=== PATIENT | female | born 1935 | race Hispanic/Latino ===

== ENCOUNTER 2021-04-08 17:13 | Observation (INO) | payer MEDICARE ==
[2021-04-08] MEDS ORDERED: PANTOPRAZOLE 40 MG INJ IV ONE (17:47)
[2021-04-08] MEDS ORDERED: SODIUM CHLORIDE 0.9% 1000 ML 1,000 ML IV ONE (17:47)
[2021-04-08] MEDS ORDERED: ONDANSETRON 4 MG/2 ML INJ IV ONE (17:47)
--- NOTE | 2021-04-08 17:49 | Emergency Department Report ---
ED GI Bleed HPI - General Chief complaint: GI Bleed Stated complaint: GI BLEED Time Seen by Provider: 04/08/21 17:38 Source: patient, EMS ( EMS documentation not available at time of chart dictation ), RN notes reviewed Mode of arrival: Stretcher Limitations: No Limitations, Physical Limitation - History of Present Illness Initial comments: The patient was evaluated in the emergency department for symptoms described in the history of present illness. He/she was evaluated in the context of the global COVID-19 pandemic, which necessitated consideration that the patient might be at risk for infection with the virus that causes COVID-19. Institution al protocols and algorithms that pertain to the evaluation of patients at risk for COVID-19 are in a state of rapid change based on information released by regulatory bodies including the CDC and federal and state organizations. These policies and algorithms were followed during the patient's care in the emergency department. Please note that these policies, procedures and recommendations changed on a rapid basis. The patient is an 85-year-old female. She presents to the ER via EMS with a co mplaint of weakness. She believes that she is defecating blood. She is not sure if she is taking any blood thinners. She thinks that she felt weak, and may have lost consciousness while using the restroom. She did not hit her head or neck. She denies physical pain. She denies urinary symptoms. MD complaint: melena -: Sudden Severity scale (0 -10): 0 Consistency: constant Improves with: none Worsens with: none Associated Symptoms: syncope - Related Data Allergies Allergy/AdvReac Type Severity Reaction Status Date / Time sulfamethoxazole Allergy Unknown Verified 04/08/21 17:13 [From Bactrim] trimethoprim [From Bactrim] Allergy Unknown Verified 04/08/21 17:13 ED Review of Systems ROS: Stated complaint: GI BLEED Other details as noted in HPI Constitutional: malaise, weakness. denies: fever Eyes: denies: eye discharge ENT: denies: epistaxis Cardiovascular: syncope. denies: chest pain Gastrointestinal: melena. denies: abdominal pain Genitourinary: denies: dysuria Neurological: weakness ED Past Medical Hx - Past Medical History Hx Hypertension: Yes Additional medical history: HYPOTHYROID, NEUROPATHY ED Physical Exam - General Limitations: No Limitations General appearance: alert, in no apparent distress - Head Head exam: Present: atraumatic, normocephalic - Eye Eye exam: Present: normal appearance, EOMI, other (Conjunctiva are pale). Absent: nystagmus - ENT ENT exam: Present: normal exam, normal orophraynx, mucous membranes moist, normal external ear exam - Neck Neck exam: Present: normal inspection, full ROM. Absent: tenderness, meningismus - Respiratory Respiratory exam: Present: normal lung sounds bilaterally. Absent: respiratory distress, wheezes, rales, rhonchi, stridor, decreased breath sounds - Cardiovascular Cardiovascular Exam: Present: regular rate, normal rhythm, normal heart sounds. Absent: bradycardia, tachycardia, irregular rhythm, systolic murmur, diastolic murmur, rubs, gallop - GI/Abdominal GI/Abdominal exam: Present: soft. Absent: distended, tenderness, guarding, rebound, rigid, pulsatile mass - Rectal Rectal exam: Present: normal inspection, normal rectal tone, heme (+) stool, black stool, other (Chaperoned by nurse Tracee Johnosn) - Extremities Exam Extremities exam: Present: normal inspection, full ROM, other (2+ pulses noted in the bilateral upper and lower extremities. There is no palpable cord. negative Homans sign. Muscular compartments are soft. The pelvis is stable.). Absent: pedal edema, calf tenderness - Back Exam Back exam: Present: normal inspection, full ROM. Absent: tenderness, CVA ten derness (R), CVA tenderness (L), paraspinal tenderness, vertebral tenderness - Neurological Exam Neurological exam: Present: alert, other (No facial droop. Tongue midline. Extraocular movements intact bilaterally. Facial sensation intact to light touch in V1, V2, V3 distribution bilaterally. 5 and a 5 strength in 4 extremities. Sensation intact to light touch in 4 extremities.) - Psychiatric Psychiatric exam: Present: normal affect, normal mood - Skin Skin exam: Present: warm, dry, intact, normal color. Absent: rash ED Course Vital Signs 04/08/21 04/08/21 17:14 17:49 Temperature 95.0 F L 95.9 F L Pulse Rate 68 Respiratory 18 Rate Blood Pressure 92/58 [Left] O2 Sat by Pulse 97 Oximetry - Reevaluation(s) Reevaluation #1: 04/08/21 19:13 Hypothermia is likely secondary to environmental exposure. Patient denies infectious symptoms. Place patient on warm blankets. ED Medical Decision Making - Lab Data Result diagrams: 04/08/21 18:27 04/08/21 18:27 Vital Signs 04/08/21 04/08/21 17:14 17:49 Temperature 95.0 F L 95.9 F L Pulse Rate 68 Respiratory 18 Rate Blood Pressure 92/58 [Left] O2 Sat by Pulse 97 Oximetry Lab Results 04/08/21 04/08/21 Range/Units 18:27 18:27 WBC 8.3 (4.5-11.0) K/mm3 RBC 2.81 L (3.65-5.03) M/mm3 Hgb 9.2 L (10.1-14.3) gm/dl Hct 27.3 L (30.3-42.9) % MCV 97 (79-97) fl MCH 33 H (28-32) pg MCHC 34 (30-34) % RDW 13.7 (13.2-15.2) % Plt Count 246 (140-440) K/mm3 Lymph % (Auto) 7.5 L (13.4-35.0) % [place] % (Auto) 7.5 H (0.0-7.3) % Eos % (Auto) 0.9 (0.0-4.3) % Baso % (Auto) 0.4 (0.0-1.8) % Lymph # (Auto) 0.6 L (1.2-5.4) K/mm3 [place] # (Auto) 0.6 (0.0-0.8) K/mm3 Eos # (Auto) 0.1 (0.0-0.4) K/mm3 Baso # (Auto) 0.0 (0.0-0.1) K/mm3 Seg Neutrophils % 83.7 H (40.0-70.0) % Seg Neutrophils # 7.0 (1.8-7.7) K/mm3 PT 14.5 (12.2-14.9) Sec. INR 1.02 (0.87-1.13) APTT 28.7 (24.2-36.6) Sec. Lab Results 04/08/21 04/08/21 04/08/21 Range/Units 18:27 18:27 18:27 WBC 8.3 (4.5-11.0) K/mm3 RBC 2.81 L (3.65-5.03) M/mm3 Hgb 9.2 L (10.1-14.3) gm/dl Hct 27.3 L (30.3-42.9) % MCV 97 (79-97) fl MCH 33 H (28-32) pg MCHC 34 (30-34) % RDW 13.7 (13.2-15.2) % Plt Count 246 (140-440) K/mm3 Lymph % (Auto) 7.5 L (13.4-35.0) % [place] % (Auto) 7.5 H (0.0-7.3) % Eos % (Auto) 0.9 (0.0-4.3) % Baso % (Auto) 0.4 (0.0-1.8) % Lymph # (Auto) 0.6 L (1.2-5.4) K/mm3 [place] # (Auto) 0.6 (0.0-0.8) K/mm3 Eos # (Auto) 0.1 (0.0-0.4) K/mm3 Baso # (Auto) 0.0 (0.0-0.1) K/mm3 Seg Neutrophils % 83.7 H (40.0-70.0) % Seg Neutrophils # 7.0 (1.8-7.7) K/mm3 PT 14.5 (12.2-14.9) Sec. INR 1.02 (0.87-1.13) APTT 28.7 (24.2-36.6) Sec. Sodium 132 L (137-145) mmol/L Potassium 4.2 (3.6-5.0) mmol/L Chloride 103.6 (98-107) mmol/L Carbon Dioxide 21 L (22-30) mmol/L Anion Gap 12 mmol/L BUN 54 H (7-17) mg/dL Creatinine 0.9 (0.6-1.2) mg/dL Estimated GFR 60 ml/min BUN/Creatinine Ratio 60 % Glucose 119 H (65-100) mg/dL Calcium 8.7 (8.4-10.2) mg/dL Total Bilirubin 0.20 (0.1-1.2) mg/dL AST 15 (5-40) units/L ALT 9 (7-56) units/L Alkaline Phosphatase 91 (35-129) units/L Total Protein 6.2 L (6.3-8.2) g/dL Albumin 3.2 L (3.9-5) g/dL Albumin/Globulin Ratio 1.1 % - EKG Data -: EKG Interpreted by Me EKG shows normal: sinus rhythm Rate: normal - EKG Data 04/08/21 19:10 The EKG is interpreted at 18: 54 Sinus rhythm, rate 66 bpm. Left axis deviation, left anterior fascicular block, QTC 4 6 9 ms, and motion artifact. Abnormal EKG. Not a STEMI - Medical Decision Making Differential diagnosis, including but not limited to: Upper GI bleed, lower GI bleed, angiodysplasia, diverticulosis Assessment and plan: Elderly 85-year-old female presenting with probable upper GI bleed which is painless. She is clinically sober with a GCS of 15, and reports that she has not hit her head or her neck. Nursing team able to reconcile medications from home family members, patient does not take systemic anticoagulation. Blood pressure currently 127/60 mmHg. Make n.p.o., start Protonix push, Protonix drip, and IV fluids. Contacted GI physician on-call, Dr. Fernando. Have discussed the patient's history, physical, laboratory studies and clinical impression. She will follow in consultation. Discussed with hospital physician, Dr. Lasha Lee He will admit the patient to the medical service. Discussed recommendation for admission with the patient. She is agreeable to this plan of care. She has no yazdanism objections to receiving packed red blood cells should she require. At this point in time, resting comfortably, would not transfuse. Continue supportive care and fluids Critical care attestation.: If time is entered above; I have spent that time in minutes in the direct care of this critically ill patient, excluding procedure time. ED Disposition Clinical Impression: GI bleed, History of syncope Disposition: ADMITTED INPATIENT Is pt being admited?: Yes Does the pt Need Aspirin: No Condition: Stable Forms: Accompanied Note
[2021-04-08 18:54] LABS: Basophils % (Auto) 0.4 % (0.0-1.8); Eosinophils # (Auto) 0.1 K/mm3 (0.0-0.4); Eosinophils % (Auto) 0.9 % (0.0-4.3); Hematocrit 27.3 % (30.3-42.9); Hemoglobin 9.2 gm/dl (10.1-14.3); Lymphocytes # (Auto) 0.6 K/mm3 (1.2-5.4); Lymphocytes % (Auto) 7.5 % (13.4-35.0); Mean Corpuscular HGB Conc 34 % (30-34); Mean Corpuscular Volume 97 fl (79-97); Monocytes # (Auto) 0.6 K/mm3 (0.0-0.8); Monocytes % (Auto) 7.5 % (0.0-7.3); Platelet Count 246 K/mm3 (140-440); Red Blood Count 2.81 M/mm3 (3.65-5.03); Red Cell Distribution Width 13.7 % (13.2-15.2)
[2021-04-08 19:04] LABS: INR 1.02 (0.87-1.13); Partial Thromboplastin Time 28.7 Sec. (24.2-36.6)
[2021-04-08 19:12] LABS: Albumin 3.2 g/dL (3.9-5); Calcium 8.7 mg/dL (8.4-10.2)
[2021-04-08] MEDS: PANTOPRAZOLE 80 MG in SODIUM CHLORIDE 0.9% 100 ML IV SCH (20:02)
[2021-04-08] MEDS ORDERED: ONDANSETRON 4 MG/2 ML INJ IV PRN (22:53)
[2021-04-08] MEDS ORDERED: MORPHINE 2 MG/1 ML INJ IV PRN (22:53)
[2021-04-08] MEDS ORDERED: ACETAMINOPHEN 325 MG TAB PO PRN (22:53)
--- NOTE | 2021-04-08 22:53 | History and Physical Report ---
History of Present Illness Date of examination: 04/08/21 Date of admission: April 08, 2021 Chief complaint: Melanotic stool since morning Syncope X1 History of present illness: 85-year-old female with past medical history of hypertension, hypothyroidism and neuropathy believe that she is having melanotic stools. For 1 day. Not on any blood thinners. Feels weak and lightheaded. Syncopized once. While using the restroom. Did not hit her head or neck. No physical pain. No chest pain. No GI bleed in the past. No exacerbating or relieving factors. Review of Systems ROS: Stated complaint: GI BLEED Other details as noted in HPI Constitutional: malaise, weakness. denies: fever Eyes: denies: eye discharge ENT: denies: epistaxis Cardiovascular: syncope. denies: chest pain Gastrointestinal: melena. denies: abdominal pain Genitourinary: denies: dysuria Neurological: weakness Past History Past Medical History: hypertension, hypothyroidism, other (Neuropathy) Past Surgical History: No surgical history Social history: full code Family history: hypertension Medications and Allergies Allergies Allergy/AdvReac Type Severity Reaction Status Date / Time sulfamethoxazole Allergy Unknown Verified 04/08/21 17:13 [From Bactrim] trimethoprim [From Bactrim] Allergy Unknown Verified 04/08/21 17:13 Active Meds: Active Medications Pantoprazole Sodium 80 mg/ (Sodium Chloride) 100 mls @ 10 mls/hr IV DIRECT ODIN Last Admin: 04/08/21 20:02 Dose: 8 mg/hr, 10 mls/hr Exam - Constitutional Vitals: Temp Pulse Resp BP Pulse Ox 95.9 F L 68 18 92/58 97 04/08/21 17:49 04/08/21 17:14 04/08/21 17:14 04/08/21 17:14 04/08/21 17:14 General appearance: Present: no acute distress, well-nourished - EENT Eyes: Present: PERRL ENT: hearing intact, clear oral mucosa - Neck Neck: Present: supple, normal ROM - Respiratory Respiratory effort: normal Respiratory: bilateral: CTA - Cardiovascular Heart rate: 78 Rhythm: regular Heart Sounds: Present: S1 & S2. Absent: rub, click - Extremities Extremities: no ischemia, pulses intact, pulses symmetrical, No edema Peripheral Pulses: within normal limits - Abdominal General gastrointestinal: Present: soft, non-tender, non-distended, normal bowel sounds Female genitourinary: Present: normal - Rectal Rectal Exam: stool dark (Occult blood positive) - Integumentary Integumentary: Present: clear, warm, dry - Musculoskeletal Musculoskeletal: gait normal, strength equal bilaterally - Psychiatric Psychiatric: appropriate mood/affect, intact judgment & insight - Neurologic Neurologic: CNII-XII intact, moves all extremities HEART Score - HEART Score History: Slightly suspicious Age: > 65 Risk factors: 1-2 risk factors Troponin: < normal limit - Critical Actions Critical Actions: 0-3 pts:0.9-1.7%risk of adverse cardiac event.Candidate for discharge Results - Labs CBC & Chem 7: 04/09/21 05:06 04/09/21 05:06 Labs: Laboratory Last Values WBC 8.3 K/mm3 (4.5-11.0) 04/08/21 18:27 RBC 2.81 M/mm3 (3.65-5.03) L 04/08/21 18:27 Hgb 9.2 gm/dl (10.1-14.3) L 04/08/21 18:27 Hct 27.3 % (30.3-42.9) L 04/08/21 18:27 MCV 97 fl (79-97) 04/08/21 18:27 MCH 33 pg (28-32) H 04/08/21 18:27 MCHC 34 % (30-34) 04/08/21 18:27 RDW 13.7 % (13.2-15.2) 04/08/21 18:27 Plt Count 246 K/mm3 (140-440) 04/08/21 18:27 Lymph % (Auto) 7.5 % (13.4-35.0) L 04/08/21 18:27 [place] % (Auto) 7.5 % (0.0-7.3) H 04/08/21 18:27 Eos % (Auto) 0.9 % (0.0-4.3) 04/08/21 18:27 Baso % (Auto) 0.4 % (0.0-1.8) 04/08/21 18:27 Lymph # (Auto) 0.6 K/mm3 (1.2-5.4) L 04/08/21 18:27 [place] # (Auto) 0.6 K/mm3 (0.0-0.8) 04/08/21 18:27 Eos # (Auto) 0.1 K/mm3 (0.0-0.4) 04/08/21 18:27 Baso # (Auto) 0.0 K/mm3 (0.0-0.1) 04/08/21 18:27 Seg Neutrophils % 83.7 % (40.0-70.0) H 04/08/21 18:27 Seg Neutrophils # 7.0 K/mm3 (1.8-7.7) 04/08/21 18:27 PT 14.5 Sec. (12.2-14.9) 04/08/21 18:27 INR 1.02 (0.87-1.13) 04/08/21 18:27 APTT 28.7 Sec. (24.2-36.6) 04/08/21 18:27 Sodium 132 mmol/L (137-145) L 04/08/21 18: Potassium 4.2 mmol/L (3.6-5.0) 04/08/21 18: Chloride 103.6 mmol/L (98-107) 04/08/21 18:27 Carbon Dioxide 21 mmol/L (22-30) L 04/08/21 18:27 Anion Gap 12 mmol/L 04/08/21 18:27 BUN 54 mg/dL (7-17) H 04/08/21 18:27 Creatinine 0.9 mg/dL (0.6-1.2) 04/08/21 18:27 Estimated GFR 60 ml/min 04/08/21 18: BUN/Creatinine Ratio 60 % 04/08/21 18:27 Glucose 119 mg/dL (65-100) H 04/08/21 18:27 Calcium 8.7 mg/dL (8.4-10.2) 04/08/21 18:27 Total Bilirubin 0.20 mg/dL (0.1-1.2) 04/08/21 18:27 AST 15 units/L (5-40) 04/08/21 18:27 ALT 9 units/L (7-56) 04/08/21 18: Alkaline Phosphatase 91 units/L (35-129) 04/08/21 18:27 Total Protein 6.2 g/dL (6.3-8.2) L 04/08/21 18:27 Albumin 3.2 g/dL (3.9-5) L 04/08/21 18:27 Albumin/Globulin Ratio 1.1 % 04/08/21 18:27 Blood Type AB POSITIVE 04/08/21 18:31 Antibody Screen Negative 04/08/21 18:31 Short CBC 04/08/21 04/08/21 04/09/21 Range/Units 18:27 23:08 05:06 WBC 8.3 (4.5-11.0) K/mm3 Hgb 9.2 L 8.2 L 8.3 L (10.1-14.3) gm/dl Hct 27.3 L 24.5 L 24.9 L (30.3-42.9) % Plt Count 246 (140-440) K/mm3 BMP 04/08/21 04/09/21 18:27 05:06 Sodium 132 L 142 D Potassium 4.2 3.7 Chloride 103.6 115.3 H Carbon Dioxide 21 L 13 L D BUN 54 H 37 H Creatinine 0.9 0.7 Glucose 119 H 84 Calcium 8.7 8.6 Liver Function 04/08/21 Range/Units 18:27 Total Bilirubin 0.20 (0.1-1.2) mg/dL AST 15 (5-40) units/L ALT 9 (7-56) units/L Alkaline Phosphatase 91 (35-129) units/L Albumin 3.2 L (3.9-5) g/dL Assessment and Plan Advance Directives: Yes (Full code) VTE prophylaxis?: Mechanical Plan of care discussed with patient/family: Yes - Patient Problems (1) GI bleed Current Visit: Yes Status: Acute Qualifiers: GI bleed type/associated pathology: unspecified gastrointestinal hemorrhage type Qualified Code(s): K92.2 - Gastrointestinal hemorrhage, unspecified Plan to address problem: Possible upper GI bleed IV Protonix drip GI consult Keep patient n.p.o. (2) Hypertension Current Visit: Yes Status: Chronic Qualifiers: Hypertension type: primary hypertension Qualified Code(s): I10 - Essential (primary) hypertension Plan to address problem: Patient not on any antihypertensives We will start antihypertensives if necessary (3) Hypothyroidism Current Visit: Yes Status: Chronic Qualifiers: Hypothyroidism type: acquired Qualified Code(s): E03.9 - Hypothyroidism, unspecified Plan to address problem: By history Check TSH No Synthroid on home medications We will start Synthroid if TSH is high (4) Advance care planning Current Visit: Yes Status: Acute Plan to address problem: Disease education conducted, care plan discussed, diagnosis discussed, prognosis discussed. Patient is full code. Patient acknowledges understanding and agreement with care plan. +30 minutes. (5) Symptomatic anemia Current Visit: Yes Status: Acute Plan to address problem: Transfuse if necessary (6) DVT prophylaxis Current Visit: Yes Status: Acute Plan to address problem: On SCDs and GI prophylaxis (7) Syncope and collapse Current Visit: Yes Status: Acute Plan to address problem: Secondary to orthostatic hypotension IV fluids Normal work-up
[2021-04-08 23:13] LABS: Hematocrit 24.5 % (30.3-42.9); Hemoglobin 8.2 gm/dl (10.1-14.3)
[2021-04-09] MEDS: SODIUM CHLORIDE 0.9% 1000 ML 1,000 ML IV SCH ×2 (02:29→17:09)
[2021-04-09 06:29] LABS: Hematocrit 24.9 % (30.3-42.9); Hemoglobin 8.3 gm/dl (10.1-14.3)
[2021-04-09 06:56] LABS: Blood Urea Nitrogen 37 mg/dL (7-17); Calcium 8.6 mg/dL (8.4-10.2); Hemolysis Index 24
[2021-04-09 06:59] LABS: BUN/Creatinine Ratio 53
[2021-04-09] MEDS ORDERED: LIDOCAINE MPF (2%) 20 MG/1 ML VIAL 5 ML ONE (07:53)
[2021-04-09] MEDS ORDERED: propofoL 200 MG/20 ML VIAL IV ONE (07:54)
--- NOTE | 2021-04-09 08:01 | Anesthesia Consultation ---
Anesthesia Consult and Med Hx Date of service: 04/09/21 - Airway Anesthetic Teeth Evaluation: Dentures ROM Head & Neck: Adequate Mental/Hyoid Distance: Adequate Mallampati Class: Class II Intubation Access Assessment: Good - Pulmonary Exam CTA: Yes - Cardiac Exam Cardiac Exam: RRR - Pre-Operative Health Status ASA Pre-Surgery Classification: ASA2 Proposed Anesthetic Plan: MAC - Pulmonary Hx Smoking: No Hx Respiratory Symptoms: No Home Oxygen Therapy: No Hx Sleep Apnea: No - Cardiovascular System Hx Hypertension: Yes Hx Cardia Arrhythmia: No Hx Heart Murmur: No - Central Nervous System Hx Neuromuscular Disorder: No CVA: No - Endocrine Hx Renal Disease: No Hx Hypothyroidism: Yes - Hematic Hx Anemia: Yes - Additional Comments Anesthesia Medical History Comments: Hysterectomy NAC
--- NOTE | 2021-04-09 08:02 | Anesthesia Day of Surgery ---
Anesthesia Day of Surgery - Day of Surgery Patient Examined: Yes Patient H&P Reviewed: Yes Patient is NPO: Yes
--- NOTE | 2021-04-09 08:32 | Gastroenterology Consultation ---
History of Present Illness - Reason for Consult Consult date: 04/09/21 GI Bleed Requesting physician: CRISTOPHER LYLES - History of Present Illness This is a pleasant 85-year-old female no history of GI bleed in the past presenting with melena, coffee-ground emesis, and weakness She denies use of NSAIDs She denies abdominal pain She reports for the last day having coffee-ground emesis as well as black tarry stool and weakness fatigue and dyspnea on exertion Denies history of peptic ulcer disease, denies blood thinners Duration 1 day Obtained/updated/reviewed patient's current medications Past History Past Medical History: hypertension, hypothyroidism, other (Neuropathy) Past Surgical History: No surgical history Social history: full code Family history: hypertension Medications and Allergies Allergies Allergy/AdvReac Type Severity Reaction Status Date / Time sulfamethoxazole Allergy Unknown Verified 04/08/21 17:13 [From Bactrim] trimethoprim [From Bactrim] Allergy Unknown Verified 04/08/21 17:13 Active Meds: Active Medications Acetaminophen (Acetaminophen 325 Mg Tab) 650 mg PO Q4H PRN PRN Reason: Pain MILD(1-3)/Fever >100.5/BRYAN Pantoprazole Sodium 80 mg/ (Sodium Chloride) 100 mls @ 10 mls/hr IV DIRECT ODIN Last Admin: 04/08/21 20:02 Dose: 8 mg/hr, 10 mls/hr Sodium Chloride (Nacl 0.9% 1000 Ml) 1,000 mls @ 75 mls/hr IV DIRECT ODIN Last Admin: 04/09/21 02:29 Dose: 75 mls/hr Morphine Sulfate (Morphine 2 Mg/1 Ml Inj) 2 mg IV Q4H PRN PRN Reason: Pain, Moderate (4-6) Ondansetron HCl (Ondansetron 4 Mg/2 Ml Inj) 4 mg IV Q8H PRN PRN Reason: Nausea And Vomiting Sodium Chloride (Sodium Chloride 0.9% 10 Ml Flush Syringe) 10 ml IV BID ODIN Sodium Chloride (Sodium Chloride 0.9% 10 Ml Flush Syringe) 10 ml IV PRN PRN PRN Reason: LINE FLUSH Review of Systems - Review of Systems All systems: negative (10 Systems reviewed and negative except as mentioned above in the history of present illness) Exam - Constitutional Vital Signs: Temp Pulse Resp BP Pulse Ox 97.9 F 67 16 131/53 98 04/09/21 01:54 04/09/21 05:00 04/09/21 01:54 04/09/21 01:54 04/09/21 01:54 General appearance: no acute distress - EENT Eyes: EOM intact ENT: hearing intact - Neck Neck: supple - Respiratory Respiratory effort: normal Respiratory: bilateral: CTA - Breasts Breasts: deferred - Cardiovascular Rhythm: regular - Gastrointestinal General gastrointestinal: Present: soft, non-tender, non-distended - Integumentary Integumentary: Present: dry - Neurologic Neurological: alert and oriented x3 - Psychiatric Psychiatric: appropriate mood/affect - Labs CBC & Chem 7: 04/09/21 05:06 04/09/21 05:06 Lab Results: Laboratory Results - last 24 hr 04/08/21 04/08/21 04/08/21 18:27 18:27 18:27 WBC 8.3 RBC 2.81 L Hgb 9.2 L Hct 27.3 L MCV 97 MCH 33 H MCHC 34 RDW 13.7 Plt Count 246 Lymph % (Auto) 7.5 L [place] % (Auto) 7.5 H Eos % (Auto) 0.9 Baso % (Auto) 0.4 Lymph # (Auto) 0.6 L [place] # (Auto) 0.6 Eos # (Auto) 0.1 Baso # (Auto) 0.0 Seg Neutrophils % 83.7 H Seg Neutrophils # 7.0 PT 14.5 INR 1.02 APTT 28.7 Sodium 132 L Potassium 4.2 Chloride 103.6 Carbon Dioxide 21 L Anion Gap 12 BUN 54 H Creatinine 0.9 Estimated GFR 60 BUN/Creatinine Ratio 60 Glucose 119 H Calcium 8.7 Total Bilirubin 0.20 AST 15 ALT 9 Alkaline Phosphatase 91 Total Protein 6.2 L Albumin 3.2 L Albumin/Globulin Ratio 1.1 Blood Type Antibody Screen 04/08/21 04/08/21 04/09/21 18:31 23:08 05:06 WBC RBC Hgb 8.2 L Hct 24.5 L MCV MCH MCHC RDW Plt Count Lymph % (Auto) [place] % (Auto) Eos % (Auto) Baso % (Auto) Lymph # (Auto) [place] # (Auto) Eos # (Auto) Baso # (Auto) Seg Neutrophils % Seg Neutrophils # PT INR APTT Sodium 142 D Potassium 3.7 Chloride 115.3 H Carbon Dioxide 13 L D Anion Gap 17 BUN 37 H Creatinine 0.7 Estimated GFR > 60 BUN/Creatinine Ratio 53 Glucose 84 Calcium 8.6 Total Bilirubin AST ALT Alkaline Phosphatase Total Protein Albumin Albumin/Globulin Ratio Blood Type AB POSITIVE Antibody Screen Negative 04/09/21 05:06 WBC RBC Hgb 8.3 L Hct 24.9 L MCV MCH MCHC RDW Plt Count Lymph % (Auto) [place] % (Auto) Eos % (Auto) Baso % (Auto) Lymph # (Auto) [place] # (Auto) Eos # (Auto) Baso # (Auto) Seg Neutrophils % Seg Neutrophils # PT INR APTT Sodium Potassium Chloride Carbon Dioxide Anion Gap BUN Creatinine Estimated GFR BUN/Creatinine Ratio Glucose Calcium Total Bilirubin AST ALT Alkaline Phosphatase Total Protein Albumin Albumin/Globulin Ratio Blood Type Antibody Screen
--- NOTE | 2021-04-09 08:37 | Operative Report ---
Operative Report Operative Report: DOS: 04/09/21 SURGEON: Jaime Leyva MD EGD WITH HEMOSTASIS REPORT PREOPERATIVE DIAGNOSIS and POSTOPERATIVE DIAGNOSIS: Upper GI bleed ESTIMATED BLOOD LOSS: 10 cc DESCRIPTION OF PROCEDURE: A high-resolution EGD scope was passed through the oropharynx, esophagus, stomach, and second portion of duodenum. The scope was carefully withdrawn. Retroflexion was performed in the stomach. At the end of the procedure, the scope was cleaned using normal technique. Vital signs monitored continuously throughout. SEDATION: Provided by Anesthesiology Services. COMPLICATIONS: None. FINDINGS: * No gross lesions in the entire examined duodenum * 4 ulcers in the gastric antrum. First was 2 mm and superficial no high risk stigmata no bleeding. Second was 4 mm and superficial no high risk stigmata no bleeding. Third was 5 mm with active oozing. It was superficial. Gold probe was used to cauterize the area of bleeding and hemostasis was achieved at the end of the procedure. Last ulcer was 9 mm in diameter and somewhat cratered. No active bleeding no high risk stigmata. * Remainder of stomach with minimal gastritis with mild edema * Z-line regular at 36 cm to the incisors * Remainder of exam unremarkable RECOMMENDATIONS: * May start patient on full liquid diet and advance as tolerated tonight as long as hemoglobin remains stable and no more overt bleeding * Continue PPI drip and monitor patient for rebleed. As long as no more bleeding and patient hemoglobin remained stable she can be discharged Saturday evening * Patient will require follow-up EGD in 4 to 6 weeks to ensure resolution of the ulcers and ensure no underlying H. pylori * Avoid NSAIDs
--- NOTE | 2021-04-09 09:10 | Electrocardiograph Report ---
[facility] Test Date: 2021-04-08 Test Time: 18:54:04 Pat Name: JUMA RIOS Department: Room: A474 Gender: F [employer] Teacher: ADELAIDE : 1935 Requested By: CRISTOPHER LYLES Order Number: [id number] Reading MD: Jose Saini Measurements Intervals [place] Rate: 66 P: 19 ND: 175 QRS: -51 QRSD: 104 T: 103 QT: 447 QTc: 469 Interpretive Statements Sinus rhythm Left anterior fascicular block Nonspecific T abnormalities, lateral leads No previous ECG available for comparison Electronically Signed On 04-09-2021 9:09:36 EST by Jose Saini
[2021-04-09 10:26] LABS: Hematocrit 24.5 % (30.3-42.9); Hemoglobin 8.2 gm/dl (10.1-14.3)
--- NOTE | 2021-04-09 19:55 | Progress Note ---
Assessment and Plan - Patient Problems (1) GI bleed Current Visit: Yes Status: Acute Qualifiers: GI bleed type/associated pathology: unspecified gastrointestinal hemorrhage type Qualified Code(s): K92.2 - Gastrointestinal hemorrhage, unspecified Plan to address problem: Possible upper GI bleed IV Protonix drip GI consult Keep patient n.p.o. FINDINGS: * No gross lesions in the entire examined duodenum * 4 ulcers in the gastric antrum. First was 2 mm and superficial no high risk stigmata no bleeding. Second was 4 mm and superficial no high risk stigmata no bleeding. Third was 5 mm with active oozing. It was superficial. Gold probe was used to cauterize the area of bleeding and hemostasis was achieved at the end of the procedure. Last ulcer was 9 mm in diameter and somewhat cratered. No active bleeding no high risk stigmata. * Remainder of stomach with minimal gastritis with mild edema * Z-line regular at 36 cm to the incisors * Remainder of exam unremarkable RECOMMENDATIONS: * May start patient on full liquid diet and advance as tolerated tonight as long as hemoglobin remains stable and no more overt bleeding * Continue PPI drip and monitor patient for rebleed. As long as no more bleeding and patient hemoglobin remained stable she can be discharged Saturday evening * Patient will require follow-up EGD in 4 to 6 weeks to ensure resolution of the ulcers and ensure no underlying H. pylori * Avoid NSAIDs (2) Hypertension Current Visit: Yes Status: Chronic Qualifiers: Hypertension type: primary hypertension Qualified Code(s): I10 - Essential (primary) hypertension Plan to address problem: Patient not on any antihypertensives We will start antihypertensives if necessary (3) Hypothyroidism Current Visit: Yes Status: Chronic Qualifiers: Hypothyroidism type: acquired Qualified Code(s): E03.9 - Hypothyroidism, unspecified Plan to address problem: By history Check TSH No Synthroid on home medications We will start Synthroid if TSH is high (4) Advance care planning Current Visit: Yes Status: Acute Plan to address problem: Disease education conducted, care plan discussed, diagnosis discussed, prognosis discussed. Patient is full code. Patient acknowledges understanding and agreement with care plan. +30 minutes. (5) Symptomatic anemia Current Visit: Yes Status: Acute Plan to address problem: Transfuse if necessary (6) DVT prophylaxis Current Visit: Yes Status: Acute Plan to address problem: On SCDs and GI prophylaxis (7) Syncope and collapse Current Visit: Yes Status: Acute Plan to address problem: Secondary to orthostatic hypotension IV fluids Normal work-up Subjective Date of service: 04/09/21 Principal diagnosis: Upper GI bleed Interval history: 85-year-old female with past medical history of hypertension, hypothyroidism and neuropathy believe that she is having melanotic stools. For 1 day. Not on any blood thinners. Feels weak and lightheaded. Syncopized once. While using the restroom. Did not hit her head or neck. No physical pain. No chest pain. No GI bleed in the past. No exacerbating or relieving factors. 04/09/2021 GI bleed stable Endoscopy findings appreciated Superficial ulcers in the gastric mucosa Objective - Constitutional Vitals: Vital Signs - 12hr 04/09/21 04/09/21 04/09/21 08:00 08:20 08:25 Temperature 98.1 F 98.8 F Pulse Rate 61 59 L 59 L Respiratory 18 16 14 Rate Blood Pressure 135/52 94/37 91/40 O2 Sat by Pulse 100 100 100 Oximetry 04/09/21 04/09/21 04/09/21 08:30 08:45 09:08 Temperature 97.9 F Pulse Rate 67 70 64 Respiratory 14 15 16 Rate Blood Pressure 136/82 132/76 112/47 O2 Sat by Pulse 100 99 98 Oximetry 04/09/21 04/09/21 12:07 16:04 Temperature 97.9 F 97.8 F Pulse Rate 60 65 Respiratory 18 18 Rate Blood Pressure 117/52 126/48 O2 Sat by Pulse 98 99 Oximetry General appearance: Present: no acute distress, well-nourished - EENT Eyes: PERRL, EOM intact ENT: hearing intact, clear oral mucosa Ears: bilateral: normal - Neck Neck: supple, normal ROM - Respiratory Respiratory effort: normal Respiratory: bilateral: CTA - Breasts Breasts: normal - Cardiovascular Heart rate: 78 Rhythm: irregularly irregular Heart Sounds: Present: S1 & S2. Absent: gallop, rub Extremities: pulses intact, No edema, normal color, Full ROM - Gastrointestinal General gastrointestinal: Present: soft, non-tender, non-distended, normal bowel sounds - Genitourinary Female genitourinary: normal - Integumentary Integumentary: clear, warm, dry - Musculoskeletal Musculoskeletal: 1, strength equal bilaterally - Neurologic Neurologic: moves all extremities - Psychiatric Psychiatric: memory intact, appropriate mood/affect, intact judgment & insight - Labs CBC & Chem 7: 04/09/21 11:34 04/09/21 05:06 Labs: Abnormal lab results 04/08/21 04/09/21 04/09/21 Range/Units 23:08 05:06 05:06 Hgb 8.2 L 8.3 L (10.1-14.3) gm/dl Hct 24.5 L 24.9 L (30.3-42.9) % Chloride 115.3 H (98-107) mmol/L Carbon Dioxide 13 L D (22-30) mmol/L BUN 37 H (7-17) mg/dL 04/09/21 Range/Units 09:52 Hgb 8.2 L (10.1-14.3) gm/dl Hct 24.5 L (30.3-42.9) % Chloride (98-107) mmol/L Carbon Dioxide (22-30) mmol/L BUN (7-17) mg/dL HEART Score - HEART Score Age: > 65 Risk factors: 1-2 risk factors Troponin: < normal limit - Critical Actions Critical Actions: 0-3 pts:0.9-1.7%risk of adverse cardiac event.Candidate for discharge
[2021-04-09 23:14] LABS: Hematocrit 23.5 % (30.3-42.9); Hemoglobin 7.8 gm/dl (10.1-14.3)
[2021-04-10] MEDS: PANTOPRAZOLE 80 MG in SODIUM CHLORIDE 0.9% 100 ML IV SCH (10:27)
--- NOTE | 2021-04-10 11:13 | Gastroenterology Progress Note ---
Assessment and Plan From GI perspective hemoglobin is essentially stabilized. Advance diet as tolerated monitor hemoglobin and monitor clinically. If repeat hemoglobin this afternoon is stable, no melena, and patient feels well she can be discharged with pantoprazole 40 mg twice daily and I already contacted my office to call the patient for a close follow-up visit and she will have repeat EGD and 6 weeks to ensure healing of the ulcers Avoid NSAIDs - Patient Problems (1) GI bleed Current Visit: Yes Status: Acute Qualifiers: GI bleed type/associated pathology: unspecified gastrointestinal hemorrhage type Qualified Code(s): K92.2 - Gastrointestinal hemorrhage, unspecified Subjective Date of service: 04/10/21 Principal diagnosis: Peptic ulcer disease, GI bleed Interval history: Patient a little bit confused this morning. However she reports stomach still continues to feel well no overt bleeding Objective - Constitutional Vitals: Temp Pulse Resp BP Pulse Ox 97.9 F 66 18 132/48 98 04/10/21 07:53 04/10/21 07:53 04/10/21 08:12 04/10/21 07:53 04/10/21 08:12 General appearance: no acute distress - EENT Eyes: EOM intact - Neck Neck: supple - Respiratory Respiratory effort: normal - Gastrointestinal General gastrointestinal: Present: soft, non-tender - Labs CBC & Chem 7: 04/09/21 11:34 04/09/21 05:06 Labs: Laboratory Results - last 24 hr 04/09/21 11:34 Hgb 7.8 L Hct 23.5 L
[2021-04-10 16:02] VITALS: BP 128/43
--- NOTE | 2021-04-10 17:39 | Discharge Summary ---
Providers - Providers Date of Admission: 04/08/21 19:00 Date of discharge: 04/10/21 Attending physician: CLEMENT BILL 04/08/21 17:48 Consult to Physician [CONS] Stat Comment: Consulting Provider: ROSEMARY SWANN Physician Instructions: Reason For Exam: gi bleed 04/10/21 14:26 Physical Therapy Evaluation and Treat [CONS] Urgent Comment: Reason For Exam: PT to eval and treat 04/10/21 14:27 Occupational Therapy Evaluate and Treat [CONS] Urgent Comment: Reason For Exam: OT to eval and treat Primary care physician: [facility] [employer] Hospitalization Condition: Stable Hospital course: Subjective Date of service: 04/10/21 Principal diagnosis: Upper GI bleed Interval history: 85-year-old female with past medical history of hypertension, hypothyroidism and neuropathy believe that she is having melanotic stools. For 1 day. Not on any blood thinners. Feels weak and lightheaded. Syncopized once. While using the restroom. Did not hit her head or neck. No physical pain. No chest pain. No GI bleed in the past. No exacerbating or relieving factors. 04/09/2021 GI bleed stable Endoscopy findings appreciated Superficial ulcers in the gastric mucosa 04/10/2021 No further GI bleed Hemoglobin and hematocrit stable Patient will be discharged on Protonix - Patient Problems (1) GI bleed Current Visit: Yes Status: Acute Qualifiers: GI bleed type/associated pathology: unspecified gastrointestinal hemorrhage type Qualified Code(s): K92.2 - Gastrointestinal hemorrhage, unspecified Plan to address problem: Possible upper GI bleed IV Protonix drip GI consult Keep patient n.p.o. FINDINGS: * No gross lesions in the entire examined duodenum * 4 ulcers in the gastric antrum. First was 2 mm and superficial no high risk stigmata no bleeding. Second was 4 mm and superficial no high risk stigmata no bleeding. Third was 5 mm with active oozing. It was superficial. Gold probe was used to cauterize the area of bleeding and hemostasis was achieved at the end of the procedure. Last ulcer was 9 mm in diameter and somewhat cratered. No active bleeding no high risk stigmata. * Remainder of stomach with minimal gastritis with mild edema * Z-line regular at 36 cm to the incisors * Remainder of exam unremarkable RECOMMENDATIONS: * May start patient on full liquid diet and advance as tolerated tonight as long as hemoglobin remains stable and no more overt bleeding * Continue PPI drip and monitor patient for rebleed. As long as no more bleeding and patient hemoglobin remained stable she can be discharged Saturday evening * Patient will require follow-up EGD in 4 to 6 weeks to ensure resolution of the ulcers and ensure no underlying H. pylori * Avoid NSAIDs (2) Hypertension Current Visit: Yes Status: Chronic Qualifiers: Hypertension type: primary hypertension Qualified Code(s): I10 - Essential (primary) hypertension Plan to address problem: Patient not on any antihypertensives We will start antihypertensives if necessary (3) Hypothyroidism Current Visit: Yes Status: Chronic Qualifiers: Hypothyroidism type: acquired Qualified Code(s): E03.9 - Hypothyroidism, unspecified Plan to address problem: By history Check TSH No Synthroid on home medications We will start Synthroid if TSH is high (4) Advance care planning Current Visit: Yes Status: Acute Plan to address problem: Disease education conducted, care plan discussed, diagnosis discussed, prognosis discussed. Patient is full code. Patient acknowledges understanding and agreement with care plan. +30 minutes. (5) Symptomatic anemia Current Visit: Yes Status: Acute Plan to address problem: Transfuse if necessary (6) DVT prophylaxis Current Visit: Yes Status: Acute Plan to address problem: On SCDs and GI prophylaxis (7) Syncope and collapse Current Visit: Yes Status: Acute Plan to address problem: Secondary to orthostatic hypotension IV fluids Normal work-up Disposition: 01 HOME / SELF CARE / HOMELESS Final Discharge Diagnosis (Prints w/discharge instructions): GI upper GI bleed. Hypothyroidism. Symptomatic anemia. Syncope and collapse Time spent for discharge: 35 minutes - Discharge Diagnoses (1) GI bleed Status: Acute Qualifiers: GI bleed type/associated pathology: unspecified gastrointestinal hemorrhage type Qualified Code(s): K92.2 - Gastrointestinal hemorrhage, unspecified (2) Hypertension Status: Chronic Qualifiers: Hypertension type: primary hypertension Qualified Code(s): I10 - Essential (primary) hypertension (3) Hypothyroidism Status: Chronic Qualifiers: Hypothyroidism type: acquired Qualified Code(s): E03.9 - Hypothyroidism, unspecified (4) Advance care planning Status: Acute (5) Symptomatic anemia Status: Acute (6) DVT prophylaxis Status: Acute (7) Syncope and collapse Status: Acute Core Measure Documentation - Palliative Care Palliative Care/ Comfort Measures: Not Applicable - Core Measures Any of the following diagnoses?: none Exam - Constitutional Vitals: Temp Pulse Resp BP Pulse Ox 97.9 F 61 16 128/43 98 04/10/21 15:42 04/10/21 15:42 04/10/21 15:42 04/10/21 15:42 04/10/21 15:42 General appearance: Present: no acute distress, well-nourished - EENT Eyes: Present: PERRL ENT: hearing intact, clear oral mucosa - Neck Neck: Present: supple, normal ROM - Respiratory Respiratory effort: normal Respiratory: bilateral: CTA - Cardiovascular Heart rate: 78 Rhythm: regular Heart Sounds: Present: S1 & S2. Absent: rub, click - Extremities Extremities: no ischemia, pulses intact, pulses symmetrical, No edema Peripheral Pulses: within normal limits - Abdominal General gastrointestinal: Present: soft, non-tender, non-distended, normal bowel sounds Female genitourinary: Present: normal - Integumentary Integumentary: Present: clear, warm, dry - Musculoskeletal Musculoskeletal: gait normal, strength equal bilaterally - Psychiatric Psychiatric: appropriate mood/affect, intact judgment & insight - Neurologic Neurologic: CNII-XII intact, moves all extremities Plan Follow up with: PRIMARY CARE, [Primary Care Provider] - 3-5 Days Forms: Accompanied Note
== END 2021-04-10 20:30 | disposition home or self-care (01) ==
LOC: ED 17:13 → 4A 19:00
PROVIDERS: ADMIT Internal Medicine; ATTEND Internal Medicine
DX: K92.2 Gastrointestinal hemorrhage, unspecified (principal); I10 Essential (primary) hypertension; E03.9 Hypothyroidism, unspecified; D64.9 Anemia, unspecified; R55 Syncope and collapse; G62.9 Polyneuropathy, unspecified
CPT/HCPCS: 36415; 43239; 80048; 80053; 85014; 85018; 85025; 85610; 85730; 86850; 86900; 86901; 93005; 93010; 96361; 96365; 96366; 96375; 96376; 99284; C9113; G0378; J2270; J2405; J2704; J3490; J7030; J7120; Q0162